=== PATIENT | female | born 1965 | race African-American/Black ===

== ENCOUNTER 2019-12-08 08:11 | Outpatient (CLI) | payer OTHER, SELFPAY ==
--- NOTE | ~2019-12-08 | MM_ITS ---
EXAMINATION: MM screening maite BI w adrian HISTORY: Screening mammogram TECHNIQUE: Craniocaudal and mediolateral oblique 3-D tomosynthesis images were obtained and synthetic 2-D images were generated. CAD analysis was submitted and interpreted. COMPARISON: No prior mammogram is available for comparison at this institution. BREAST PARENCHYMAL COMPOSITION: There are scattered areas of fibroglandular density. FINDINGS: There is no evidence of suspicious mass, calcification, or architectural distortion to sugg est malignancy in either breast. There has been no suspicious interval change. IMPRESSION: 1. No mammographic evidence of malignancy. 2. Recommend routine screening mammography in one year. BI-RADS Category 1: Negative Reviewed, dictated and finalized at location A.
== END 2019-12-08 08:12 | disposition home or self-care (01) ==
LOC: ANHIMG 08:20
DX: Z12.31 Encounter for screening mammogram for malignant neoplasm of breast (principal)
CPT/HCPCS: 77063; 77067

== ENCOUNTER 2021-01-19 09:26 | Outpatient (CLI) | payer OTHER, SELFPAY ==
--- NOTE | ~2021-01-19 | MM_ITS ---
EXAMINATION: MM screening maite BI w adrian HISTORY: Screening mammogram TECHNIQUE: Craniocaudal and mediolateral oblique 3-D tomosynthesis images were obtained and synthetic 2-D images were generated. CAD analysis was submitted and interpreted. COMPARISON: 12/08/2019 BREAST PARENCHYMAL COMPOSITION: There are scattered areas of fibroglandular density. FINDINGS: There is no evidence of suspicious mass, calcification, or architectural distortion to sugg est malignancy in either breast. There has been no suspicious interval change. IMPRESSION: 1. No mammographic evidence of malignancy. 2. Recommend routine screening mammography in one year. BI-RADS Category 1: Negative Reviewed, dictated and finalized at location A.
== END 2021-01-19 09:27 | disposition home or self-care (01) ==
DX: Z12.31 Encounter for screening mammogram for malignant neoplasm of breast (principal)
CPT/HCPCS: 77063; 77067

== ENCOUNTER 2022-03-22 09:09 | Outpatient (CLI) | payer OTHER, SELFPAY ==
--- NOTE | ~2022-03-22 | MM_ITS ---
EXAMINATION: MM screening maite BI w adrian HISTORY: Screening TECHNIQUE: Craniocaudal and mediolateral oblique 3-D tomosynthesis images were obtained and synthetic 2-D images were generated. CAD analysis was submitted and interpreted. COMPARISON: Comparison to multiple prior studies sequentially, with oldest reviewed study dated 12/07. BREAST PARENCHYMAL COMPOSITION: There are scattered areas of fibroglandular density. FINDINGS: There is no evidence of suspicious mass, calcification, or architectural distortion to sugg est malignancy in either breast. There has been no suspicious interval change. IMPRESSION: 1. No mammographic evidence of malignancy. 2. Recommend routine screening mammography in one year. BI-RADS Category 1: Negative Reviewed, dictated and finalized at location A.
== END 2022-03-22 09:10 | disposition home or self-care (01) ==
DX: Z12.31 Encounter for screening mammogram for malignant neoplasm of breast (principal)
CPT/HCPCS: 77063; 77067

== ENCOUNTER 2023-05-28 14:29 | Outpatient (CLI) | payer OTHER, SELFPAY ==
--- NOTE | ~2023-05-28 | MM_ITS ---
EXAMINATION: MM screening maite BI w adrian HISTORY: Screening mammogram TECHNIQUE: Craniocaudal and mediolateral oblique 3-D tomosynthesis images were obtained and synthetic 2-D images were generated. CAD analysis was submitted and interpreted. COMPARISON: 03/22/2022, 01/19/2021, 12/08/2019 bilateral screening mammogram examinations BREAST PARENCHYMAL COMPOSITION: There are scattered areas of fibroglandular density. FINDINGS: There is no evidence of suspicious mass, calcification, or architectural distortion to sugg est malignancy in either breast. There has been no suspicious interval change. IMPRESSION: 1. No mammographic evidence of malignancy. 2. Recommend routine screening mammography in one year. BI-RADS Category 1: Negative Reviewed, dictated and finalized at location A.
== END 2023-05-28 14:30 | disposition home or self-care (01) ==
DX: Z12.31 Encounter for screening mammogram for malignant neoplasm of breast (principal)
CPT/HCPCS: 77063; 77067

== ENCOUNTER 2024-06-29 09:30 | Outpatient (CLI) | payer OTHER, SELFPAY ==
--- NOTE | ~2024-06-29 | MM_ITS ---
EXAMINATION: MM screening maite BI w adrian HISTORY: Screening TECHNIQUE: Craniocaudal and mediolateral oblique 3-D tomosynthesis images were obtained and synthetic 2-D images were generated. CAD analysis was submitted and interpreted. COMPARISON: Comparison to multiple prior studies sequentially, with oldest reviewed study dated 12/07. BREAST PARENCHYMAL COMPOSITION: Not dense: There are scattered areas of fibroglandular density. FINDINGS: There is no evidence of suspicious mass, calcification, or architectural distortion to sugg est malignancy in either breast. There has been no suspicious interval change. IMPRESSION: 1. No mammographic evidence of malignancy. 2. Recommend routine screening mammography in one year. BI-RADS Category 1: Negative Reviewed, dictated and finalized at location B.
== END 2024-06-29 09:31 | disposition home or self-care (01) ==
LOC: ANHIMG 09:32
DX: Z12.31 Encounter for screening mammogram for malignant neoplasm of breast (principal)
CPT/HCPCS: 77063; 77067

== ENCOUNTER 2025-07-23 14:58 | Outpatient (CLI) | payer OTHER, SELFPAY ==
--- NOTE | ~2025-07-23 | MM_ITS ---
EXAMINATION: MM screening [facility] BI w adrian HISTORY: Screening TECHNIQUE: Craniocaudal and mediolateral oblique 3-D tomosynthesis images were obtained and synthetic 2-D images were generated. CAD analysis was submitted and interpreted. COMPARISON: Comparison to multiple prior studies sequentially, with oldest reviewed study dated 12/08/2019. BREAST PARENCHYMAL COMPOSITION: Not dense: There are scattered areas of fibroglandular density. FINDINGS: There is no evidence of suspicious mass, calcification, or architectural distortion to suggest malignancy in either breast. There has been no suspicious interval change. IMPRESSION: 1. No mammographic evidence of malignancy. 2. Recommend routine screening mammography in one year. BI-RADS Category 1: Negative Reviewed, dictated and finalized at location B.
--- OUTSIDE RECORDS SUMMARY | 2025-07-23 15:05 | XMS_ITS | Encounter Summary ---
Author Organization [facility] Address [address] [place] [id number] Care Team Providers Care Security Systems Specialist Name Role Phone Mio Rojo MD Primary Care Provider [phone] Encounter Details Date Type Department Care Team (Late st Contact Info) Description 02/09/1999 Outpatient Historical [facility] Family Medicine - [place] [address] [place] [address] Estela Nettles Social History Tobacco Use Types Packs/Day Years Used Date Smoking Tobacco: Never Assessed Comments Unknown Sex and Gender Information Value Date Recorded Sex Assigned at Not on file Legal Sex Female 4:00 AM TOOL AND DIE MAKER Gender Identity Not on file Sexual Orientation Not on file documented as of this encounter Plan of Treatment Upcoming Encounters Date Type Department Care Team (Late st Contact Info) Description 08/13/2025 9:20 AM TOOL AND DIE MAKER Office Visit [facility] Internal Medicine - [address] [address] Ale Kim MD [address] [place] [address] documented as of this encounter Visit Diagnoses Not on filedocumented in this encounter Care Teams Security Systems Specialist Relationship Specialty Start Date End Date Mio Rojo MD [address] [facility] [address] [place] [address] PCP - General Family Practice 09/01/24 documented as of this encounter
--- OUTSIDE RECORDS SUMMARY | 2025-07-23 15:05 | XMS_ITS | Encounter Summary ---
Author Organization [facility] Address [address] [place] [address] Care Team Providers Care Aircraft Structural Design Engineer Name Role Phone Mio Rojo MD Primary Care Provider [phone] Encounter Details Date Type Department Care Team (Latest Contact Info) Description 07/29/2006 Outpatient Historical [facility] EVE Liriano Jr., Leroy Le MD NO ADDRESS ON FILE Senile Osteoporosis (Primary Dx) Social History Tobacco Use Types Packs/Day Years Used Date Smoking Tobacco: Never Assessed Comments Unknown Sex and Gender Information Value Date Recorded Sex Assigned at Not on file Legal Sex Female 4:00 AM INTERNAL REVENUE SERVICE AGENT Gender Identity Not on file Sexual Orientation Not on file documented as of this encounter Plan of Treatment Upcoming Encounters Date Type Department Care Team (Late st Contact Info) Description 08/13/2025 9:20 AM INTERNAL REVENUE SERVICE AGENT Office Visit [facility] Internal Medicine - [facility] [address] [place] [id number] Ale Kim MD [address] [place] [phone] documented as of this encounter Procedures Procedure Name Priority Date/Time Associated Diagnosis Comments VITAMIN D 25 HYDROXY Routine 07/29/2006 12:10 PM INTERNAL REVENUE SERVICE AGENT T3 FREE Routine 07/29/2006 12:10 PM INTERNAL REVENUE SERVICE AGENT TSH Routine 07/29/2006 12:10 PM INTERNAL REVENUE SERVICE AGENT T4 FREE Routine 07/29/2006 12:10 PM INTERNAL REVENUE SERVICE AGENT PTH INTACT Routine 07/29/2006 12:10 PM INTERNAL REVENUE SERVICE AGENT CALCIUM IONIZED Routine 07/29/2006 12:10 PM INTERNAL REVENUE SERVICE AGENT documented in this encounter Results * VITAMIN D 25 HYDROXY (07/29/2006 12:10 PM INTERNAL REVENUE SERVICE AGENT) VITAMIN D, 25 OH, TOTAL 35 20 - 100 ng/mL INTERFACE SYSTEM VITAMIN D, 25 OH, D3 35 ng/mL INTERFACE SYSTEM VITAMIN D, 25 OH, D2 <4 ng/mL INTERFACE SYSTEM Comment: Vitamin D, 25-OH, D3: Endogenous form of Vitamin D present in the body. Vitamin D, 25-OH, D2: Used for therapeutic purposes in Vitamin D deficient states. This test was performed using the LC/MS/MS methodology. 25-OHD3 indicates both endogenous production and supplementation. 25-OHD2 is an indicator of exogenous sources such as diet or supplementation. Therapy is based on measurement of Total 25-OHD, with levels <20 ng/mL suggesting Vitamin D deficiency while levels between 20 ng/mL and 30 ng/mL suggesting insufficiency. In both situations there is need for intense to moderate supplementation. In patients using D2 (ergocalciferol) supplementation, levels of 4 ng/mL of 25-OHD2 or greater suggest compliance. Lab test performed by: [employer] [facility] [id number] [place], [place] JERRICA MONSON MD 07/29/2006 12:1 0 PM INTERNAL REVENUE SERVICE AGENT us Leroy Liriano Jr., MD CHEMISTRY ORDERABLES Final Result INTERFACE SYSTEM Refer to clinic/hospital department * (ABNORMAL) CALCIUM IONIZED (07/29/2006 12:10 PM INTERNAL REVENUE SERVICE AGENT) CALCIUM IONIZED 5.24(H) 4.76 - 5.16 mg/dL INTERFACE SYSTEM 07/29/2006 12:1 0 PM INTERNAL REVENUE SERVICE AGENT us Leroy Liriano Jr., MD CHEMISTRY ORDERABLES Final Result Performing Organization Address City/[facility] Co de Phone Number INTERFACE SYSTEM Refer to clinic/hospital department * PTH INTACT (07/29/2006 12:10 PM INTERNAL REVENUE SERVICE AGENT) CALCIUM 9.9 8.4 - 10.2 mg/dL INTERFACE SYSTEM PTH INTACT 18 15 - 65 pg/mL INTERFACE SYSTEM 07/29/2006 12:1 0 PM INTERNAL REVENUE SERVICE AGENT us Leroy Liriano Jr., MD CHEMISTRY ORDERABLES Final Result Performing Organization Address [facility] de Phone Number INTERFACE SYSTEM Refer to clinic/hospital department * T3 FREE (07/29/2006 12:10 PM INTERNAL REVENUE SERVICE AGENT) T3 FREE 2.8 2.5 - 4.4 pg/mL INTERFACE SYSTEM 07/29/2006 12:1 0 PM INTERNAL REVENUE SERVICE AGENT Leroy Liriano Jr., MD CHEMISTRY ORDERABLES Final Result Performing Organization Address [facility] de Phone Number INTERFACE SYSTEM Refer to clinic/hospital department * T4 FREE (07/29/2006 12:10 PM INTERNAL REVENUE SERVICE AGENT) T4 FREE 1.0 0.9 - 1.7 ng/dL INTERFACE SYSTEM 07/29/2006 12:1 0 PM INTERNAL REVENUE SERVICE AGENT us Leroy Liriano Jr., MD CHEMISTRY ORDERABLES Final Result Performing Organization Address [facility] Co de Phone Number INTERFACE SYSTEM Refer to clinic/hospital department * TSH (07/29/2006 12:10 PM INTERNAL REVENUE SERVICE AGENT) TSH 2.81 0.27 - 4.20 uU/mL INTERFACE SYSTEM 07/29/2006 12:1 0 PM INTERNAL REVENUE SERVICE AGENT us Leroy Liriano Jr., MD CHEMISTRY ORDERABLES Final Result Performing Organization Address City/[facility]/ZIP Co de Phone Number INTERFACE SYSTEM Refer to clinic/hospital department documented in this encounter Visit Diagnoses Diagnosis Senile osteoporosis- Primary documented in this encounter Care Teams Aircraft Structural Design Engineer Relationship Specialty Start Date End Date Mio Rojo MD [address] [place] [address] PCP - General Family Practice 09/01/24 documented as of this encounter
--- OUTSIDE RECORDS SUMMARY | 2025-07-23 15:05 | XMS_ITS | Clinical Summary ---
Author Organization [facility] Address [address] [address] Care Team Providers Care Ice Resurfacing Machine Operators Name Role Phone Mio Rojo MD Primary Care Provider [phone] Allergies Active Allergy Reactions Criticality Noted Date Comments Penicillins Medications tretinoin (RETIN-A) 0.1 % cream APPLY CREAM TOPICALLY ONCE DAILY AT BEDTIME TO FACE 0 Active omega-3/dha/epa /fish oil (OMEGA-3 ORAL) Take by mouth A ctive spironolactone (ALDACTONE) 50 mg tablet Take 150mg daily 1 Active hydroquinone 4 % cream as needed 1 Active hydrocortisone 2.5 % ointment RUB IN WELL TWICE A DAY TO INVOLVED AREAS UNTIL 1 Active valACYclovir (VALTREX) 1 gram tablet TAKE 2 TABLETS BY MOUTH TWICE DAILY FOR ONE DAY AT ONSET. REPEAT DOSE NEEDED AT ONSET OF SYMPTOMS THROUGH THE MONTHS 2 Active azelastine (ASTELIN) 137 mcg (0.1 %) nasal spray USE 1 SPRAY(S) IN EACH NOSTRIL TWICE DAILY DIRECTED 30 mL 1 3 Active ashwagandha extract 120 mg capsule Take by mouth Active magnesium oxide 400 mg magnesium capsule Take by mouth Active apple cider vinegar 300 mg tablet Take by mouth Active acidophilus-pec tin, citrus 100 million cell-10 mg capsule Take by mouth Activ e glucosamine HCl/chondroitin tse (glucosamine-ch ondroitin) 2,000-1,200 mg/30 mL liquid Take by mouth Active cinnamon bark 500 mg capsule Take 1 capsule (500 mg total) by mouth daily Active RED BEET ROOT-SOUR SILVERMAN EXT ORAL Take 1,200 mg by mouth Active vitamin B complex capsule Take 1 capsule by mouth daily Active turmeric root extract 500 mg capsule Take 2 capsules by mouth daily Active ginseng 100 mg capsule Take by mouth Active vitamin D3-folic acid 125 mcg (5,000 unit)-1 mg tablet Take by mouth daily Active vitamin K2 40 mcg tablet Take by mouth Activ e glutamine 500 mg capsule Take 2 capsules by mouth daily Active multivitamin tabletIndicatio ns:Vitamin Deficiency Prevention Take 1 tablet by mouth Active safflower oil-linoleic acid,co (CLA) 1,000 mg capsule Take 2 capsules by mouth daily Active ascorbic acid (vitamin C) 1,000 mg tablet Take 1 tablet (1,000 mg total) by mouth daily Active pomegranate fruit extract 250 mg capsule Take 1 capsule by mouth daily Active cranberry 500 mg capsule Take by mouth Activ e selenium 200 mcg capsule Take by mouth Acti ve vit C,T-Ew-icqsk-arnol tein-zeaxan 250-90-40-1 mg capsule Take by mouth Active ascorbic acid/collagen hydr (COLLAGEN PLUS VITAMIN C ORAL) Take by mouth Active ciclopirox (PENLAC) 8 % solution Apply topically nightly Apply over nail and surrounding skin. Apply daily over previous coat. After seven (7) days, may remove with alcohol and continue cycle. Active famotidine (PEPCID) 20 mg tablet Take 1 tablet (20 mg total) by mouth nightly as needed 4 Active Jublia 10 % solution with applicator APPLY TOPICALLY TO AFFECTED NAILS ONCE DAILY 4 Active Tyrvaya 0.03 mg/spray spray, metered, non-aerosol USE IN EACH NOSTRIL TWICE DAILY DIRECTED 4 Active minocycline (MINOCIN,DYNACI N) 50 mg capsule 4 Active Active Problems Problem Noted Date Diagnosed Date Stage 3b chronic kidney disease 05/16/2023 Assessment & Plan (05/16/2023 10:12 AM CDT): Monitor renal function. Also check PTH and vitamin-D level. Toenail fungus 05/16/2023 Assessment & Plan (05/16/2023 10:12 AM CDT): Currently on terbinafine and also uses ciclopirox. Given CKD, monitor renal function. Acne vulgaris 05/16/2023 Assessment & Plan (05/16/2023 10:13 AM CDT): Currently there is no active lesion. Spironolactone only as needed Pure hypercholesterolemia 05/16/2023 Assessment & Plan (05/16/2023 10:14 AM CDT): Total cholesterol is mildly elevated. Prior LDL was 122. Repeat labs. Continue regular exercise and start low-fat low carb diet Seasonal allergic rhinitis 05/15/2022 Assessment & Plan (05/15/2022 9:38 PM CDT): Boggy and inflammed turbinates with minimal clear drainage left >rt. Start Azelastine nasal spray. Encounter for preventative adult health care exa mination 05/23/2021 Overview (05/15/2022): Pt states Pap test today with track worker,Dr Allie Boss at [facility] Colonoscopy: 09/2015: Dr lala ken, normal, recall in 10 yrs Assessment & Plan (05/16/2023 10:14 AM CDT): Mammogram: Recommend annual mammogram. Mammogram-03/22/22- negative Colonoscopy 09/26/[address] Ken - Normal, recall in 10 yrs. Cervical cancer screening: We recommend cervical cancer screening for all individuals with a cervix ages aged 21 to 65 years. She states that she had PAP today with Dr Boss, await results. Recommend Tdap every 10 yrs, annual flu vaccine, and COVID 19 booster vaccination. Recommend Colon cancer screening : Due in 2025 She reports having Pap test with Dr. Allie Boss, Pap test however unavailable she wants to establish care with a new track worker. Referral given to patient. Mammogram 03/22/2022 was negative. Recommend annual mammogram Continue regular dental visit 1-2 times a year and annual eye exam. Continue regular exercise and healthy diet Assessment & Plan (05/15/2022 9:38 PM CDT): Mammogram: Recommend annual mammogram. Mammogram-03/22/22- negative Colonoscopy 09/26/[address] Ken - Normal, recall in 10 yrs. Cervical cancer screening: We recommend cervical cancer screening for all individuals with a cervix ages aged 21 to 65 years. She states that she had PAP today with Dr Boss, await results. Recommend Tdap every 10 yrs, annual flu vaccine, shingles vaccine and COVID 19 vaccination primary series and booster vaccination. Recommend Colon cancer screening : Due in 2025 Recommend regular dental visit 1-2 times a year or as recommended by your dentist. Also recommend annual eye exam. Nutrition: Recommend eating a balanced diet, including fruits and vegetables daily and regular servings of fish. Limit alcohol to one drink per day for female and no more than 2 drink a day for Lmales, where a drink is defined as 12 oz of beer, 5 oz of wine, or 1.5 oz of spirits. Activity: Normal BMI is >=18.5 to 24.9 kg/m2. .Try to keep BMI at the recommended limit. Recommend 30 minutes of exercise at least 5 days a week or 150 minutes of weekly exercise. Smoking: Smoking tobacco products is the most important risk factor for the development of lung cancer and contributes to a large burden of disease, including other malignancies, cardiovascular disease and pulmonary disease. If you smoke cigarettes, please stop smoking, you can also call 7-7[employer] to help you quit smoking. Avoid illegal drugs and prescription medications that are not used for medical purposes Sleep: Sleep can have a big effect on your memory and thinking. Please make sure you get a good night's sleep every night. Assessment & Plan (05/23/2021 10:56 PM CDT): Recommend regular exercise, 30 minutes of daily at least 5 days a week, eat fresh fruits and vegetables, avoid processed food. Recommend shingles vaccine if you have not had it previously, tetanus vaccine every 10 years, flu vaccine every year and two dose of pneumococcal vaccine a year apart after you turn 65. A normal BMI is between 18.5-24.9 kg/m2. Recommend annual mammogram and Pap test every 3-5 years. Colonoscopy due in 2025. Patient here for annual Medicare wellness visit and for review of complete medical problem list. All the elements of the plan were completed as outlined by CMS. A copy of the prevention plan was given to the patient. I reviewed Medicare Wellness Questionnaire (other physicians involved in care, depression screen, advanced directives), cognitive/memory, and functional assessment. Forms scanned in progress notes. I reviewed and updated the complete problem list, medication list, family history, and immunization records with the patient. I provided preventive counseling and early detection interventions to the patient through health maintenance update and summary of today's office visit. Please see patient instructions section for recommendations for appropriate screening and monitoring guidelines. Arthritis of finger of right hand 03/24/2020 Assessment & Plan (03/24/2020 11:55 AM CDT): Check x-ray, continue meloxicam. Arthritis of finger of left hand 03/24/2020 Assessment & Plan (03/24/2020 11:56 AM CDT): Check x-ray, continue meloxicam Pain in both lower extremities 03/24/2020 Assessment & Plan (03/24/2020 11:57 AM CDT): Bilateral knee exam appears normal. Continue meloxicam Urge incontinence 10/24/2018 Assessment & Plan (10/30/2019 1:27 PM GAS CHARGER): Mild, no intervention necessary conservative measures only Assessment & Plan (10/24/2018 11:04 AM GAS CHARGER): Little change in symptoms observe only Osteoarthritis 09/12/2018 Assessment & Plan (05/16/2023 10:10 AM CDT): Generalized osteoarthritis, okay to continue empiric and glucosamine. Assessment & Plan (05/23/2021 10:57 PM CDT): She has multiple joint arthritis. We discussed about meloxicam and is side effect including but not limited to acute kidney injury, bleeding, upset stomach, elevated blood pressure. Advised patient to use it only as needed. Recommended taking Tylenol. Assessment & Plan (10/30/2019 1:27 PM GAS CHARGER): Cautious trial of meloxicam in place of episodic Advil. Can also try glucosamine/chondroitin sulfate in place of regular glucosamine which is less effective. Can continue to work. Believe all of left leg pain is basically from arthritis in knee. No signs of sciatica her other disorder Assessment & Plan (10/24/2018 11:04 AM GAS CHARGER): Reviewed stretching exercises, regular exercises with low impact, and her supplements. Continue her glucosamine chondroitin sulfate analogs, tumor. Advised f fish oil has marginal evidence for osteoarthritis. She is on a variety of other supplements that I can neither damn nor endorse, and have advised her she should try stopping and starting them over a couple of months to see if they really provide any benefit rather than simply taking multiple pills wholesale Assessment & Plan (09/12/2018 10:04 AM GAS CHARGER): Generalized but more in the hand and back. Recommend chondroitin sulphate. Advil short term during flares. Can continue apple cider vinegar if it has been helpful. Will recommend physical therapy. Foot insert in the left to adjust for pelvic tilt Allergy 09/12/2018 Assessment & Plan (10/30/2019 1:25 PM GAS CHARGER): OTC medicine only seems stable Assessment & Plan (09/12/2018 10:31 AM GAS CHARGER): Possible allergic symptoms causing sneezing after meals. Recommended OTC intranasal Flonase, avoid Claritin / zyrtec as much as possible as it can cause dryness. BMI 28.0-28.9,adult 08/22/2017 Assessment & Plan (10/30/2019 11:38 AM GAS CHARGER): BMI Follow-up includes: nutrition counseling and exercise counseling. Assessment & Plan (10/21/2017 2:43 PM GAS CHARGER): BMI Follow-up includes: nutrition counseling and exercise counseling. Assessment & Plan (08/22/2017 12:42 PM GAS CHARGER): BMI is elevated, Today's instructions and counseling include lifestyle education regarding diet and exercise as well as weight loss. Dysthymia 08/22/2017 Assessment & Plan (10/30/2019 1:25 PM GAS CHARGER): Little change, does not meet criteria for depression with only mild disturbed sleep but little problems with interest rumination energy concentration psychomotor retardation appetite and certain no suicidal thoughts Assessment & Plan (10/21/2017 2:42 PM GAS CHARGER): Does not meet criteria for depression. Predominantly situational with some anxiety features. Discussed using melatonin for sleep. If anxiety flares could use brief intermittent course of benzodiazepine. She is already starting to make appropriate plans for lifestyle and job changes which should make matters better. Her mild memory loss appears related to her situational anxiety and dysthymmia, call if worsens Call if any symptoms worsen Assessment & Plan (08/22/2017 12:48 PM GAS CHARGER): She believes it is her Lack of Energy due to work load will start Lexapro and F/U in 6w Vitamin D deficiency 08/08/2016 Overview (01/03/2017): Vitamin D deficiency Assessment & Plan (10/30/2019 1:26 PM GAS CHARGER): Past history, urged to resume supplement Assessment & Plan (10/21/2017 2:42 PM GAS CHARGER): Last vitamin D level good no changes made. Reviewed her supplements, cannot endorse or damn them. Made aware that rashes and stomach upset could occurred she should re-evaluate if these issues occur Resolved Problems Problem Noted Date Diagnosed Date Resolved Date Class 1 obesity due to exces s calories without serious comorbidity with body mass index (BMI) of 30.0 to 30.9 in adult 05/16/2023 Assessment & Plan (05/16/2023 10:14 AM CDT): See above Globus sensation 12/05/2022 08/11/2024 Ganglion cyst of wrist, left 10/30/2019 08/11/2024 Assessment & Plan (10/30/2019 11:39 AM GAS CHARGER): Refer to Dr. Villalta, discussed relatively benign nature Health maintenance examination 10/24/2018 05/16/2023 Assessment & Plan (10/30/2019 1:25 PM GAS CHARGER): Life style, exerise and diet were reviewed with the patient, along with ideal body weight. Use of caffeine and alcohol were discussed. Medications, compliance and pertinent adverse drug effects were reviewed. Health maintenance matters were discussed and are now up to date. Assessment & Plan (10/24/2018 8:51 AM GAS CHARGER): Life style, exerise and diet were reviewed with the patient, along with ideal body weight. Use of caffeine and alcohol were discussed. Medications, compliance and pertinent adverse drug effects were reviewed. Health maintenance matters were discussed and are now up to date. Memory impairment of gradual onset 09/12/2018 10/30/2019 Assessment & Plan (09/12/2018 10:32 AM GAS CHARGER): Concerns of memory impairment. SLUMS normal. Will continue to follow Hx of left flank pain 10/21/20172017 Flank pain 10/21/2017 10/30/2019 Assessment & Plan (10/21/2017 2:41 PM GAS CHARGER): Given history of kidney stone in current flank pain will check CT KUB. Much of her symptoms seem musculoskeletal and there is some slight hip height in quality. If CT negative will have see therapy for evaluation Pain in wrist 12/11/2016 08/11/2024 Pain of hand 07/28/2013 08/11/2024 Assessment & Plan (09/12/2018 10:05 AM GAS CHARGER): Decrease over use of the joint. Stretching, working with PT. Can continue to use advil as needed Immunizations Immunization Administration Dates Next Due Influenza, Quadrivalent, Spl it, Preservative Free, Intradermal 08/08/2016 Influenza, Quadrivalent, Spl it, Preservative Free, Intramuscular 08/22/2017 Influenza, Unspecified 05/19/2024(Deferr ed: Patient Refused),09/12/2018(Deferred: Patient Refused) Pfizer SARS-CoV-2 Monovalent Vaccination (12+ Yrs) PURPLE 08/11/2021,11/25/2020,11/06/2020 Tdap 05/23/2021 ZOSTER Recombinant 04/18/2020,12/08/2019 Surgical History Surgery Date Site/Laterality Comments OTHER SURGICAL HISTORY kidney stone: lithotripsy LASIK SECTION Medical History Medical History Date Comments Hx Other Medical kidney stone Kidney stone Arthritis Autoimmune disease Sinusitis Anxiety Osteoporosis Family History Medical History Relation Name Comments Arthritis Father Coronary artery disease Father Devora nary artery disease; Hypertension Father Arthritis Mother Diabetes Mother Diabetes mellit us; Heart disease Mother Kidney disease Mother Relation Name Status Comments Father Mother Social History Tobacco Use Types Packs/Day Years Used Date Smoking Tobacco: Never Smokeless Tobacco: Never Tobacco Cessation:Counseling Given: Not Answered Comments:[place] couple during the week. Alcohol Use Standard Drinks/Week Comments Yes 0 (1 standard drink = 0.6 oz pur e alcohol) AUDIT-C Answer Date Recorded Q1: How often do you have a drink containing alc ohol? Monthly or less 07/30/2023 Q2: How many drinks containi ng alcohol do you have on a typical day when you are drinking? 1 or 2 07/30/2023 Q3: How often do you have si x or more drinks on one occasion? 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 Not on file Not on file Not on file Obstetrics History Para Term AB IAB SAB Ectopic Multiple Livin g Live Births 1 1 1 Date Outcome GA Total Labor Labor/2nd/3rd Weight Sex Type Anes PTL Shelley A1 A5 Name Clin 2000 F CS-Un spec Demise Last Filed Vital Signs Vital Sign Reading Time Taken Comments Blood Pressure 148/90 08/11/2024 1:06 PM GAS CHARGER Pulse 62 08/11/2024 12:38 PM GAS CHARGER Temperature 36.8 C (98.2 F) 08/22/2017 12:35 PM GAS CHARGER Respiratory Rate 18 12/05/2022 10:54 AM CDT Oxygen Saturation 99% 08/11/2024 12:38 PM GAS CHARGER Inhaled Oxygen Concentration - - Weight 70.3 kg (155 lb) 08/11/2024 12:38 PM GAS CHARGER Height 157.5 cm (5' 2) 08/11/2024 12:38 PM GAS CHARGER Body Mass Index 28.35 08/11/2024 12:38 PM GAS CHARGER Plan of Treatment Health Maintenance Due Date Last Done Comments Cervical Cancer Screening 1965 Covid-19 Vaccine ( season) 2025 08/11/2021, 11/25/2020, 11/06/2020 Breast Cancer Screening-Mammogram 06/29/2025 06/29/2024, 05/28/2023, 03/22/2022, Additional history exists Depression Screening 08/11/2025 08/11/2024, 05/16/2023, 05/15/2022, Additional history exists Regular Well Visit/Exam 18-64 08/11/2025 08/11/2024, 05/16/2023, 05/15/2022, Additional history exists Colon Cancer Screening-Colonoscopy 09/26/2025 09/26/2015 DTaP/Tdap/Td Vaccine (2 - Td or Tdap) 05/23/2031 05/23/2021 Colon Cancer Screening-CT Colonography Discontinued 09/26/2015 Colon Cancer Screening-DNA Stool Discontinued 09/26/2015 Colon Cancer Screening-FIT Discontinued 09/26/2015 Colon Cancer Screening-Sigmoidoscopy Discontinued 09/26/2015 Hepatitis C Screening Completed 08/22/2017 Influenza Vaccine Discontinued 08/22/2017, 08/08/2016 Zoster Vaccine Completed 04/18/2020, 12/08/2019 Hepatitis B Screening Discontinued Pneumococcal vaccine <65 Aged Out No longer eligible based on patient's age to complete this topic Procedures Procedure Name Priority Date/Time Associated Diagnosis Comments MAMMOGRAPHY, TOMOGRAPHY, BILATERAL Schedule Routine, Read Routine (OP Routine) 06/29/2024 10:21 AM CDT HEPATITIS C ANTIBODY Routine 08/22/2017 1:16 PM GAS CHARGER Encounter for preventive health examination COLONOSCOPY Routine 09/26/2015 from Last 3 Months or Most Recently Relevant to Health Maintenance Results * MAMMOGRAPHY, TOMOGRAPHY, BILATERAL (06/29/2024 10:21 AM CDT) Anatomical Region Laterality Modality Breast Bilateral Mammography Historical Provider IMG MAMMO PROCEDURES Cathryn l Result * Hepatitis C antibody (08/22/2017 1:16 PM GAS CHARGER) Hep C Ab Non-Reactiv e Non-Reactiv e [facility] Blood specimen (specimen) 08/22/2017 1:16 PM GAS CHARGER 08/22/2017 8:30 PM GAS CHARGER [facility]ative [facility] - 08/22/2017 10:12 PM GAS CHARGER Maury Rocha MD LAB MICROBIOLOGY - GENERAL ORD ERABLES Final Result Performing Organization Address City/State/[facility] Co de Phone Number [facility] [address] [place] [address] * Colonoscopy (09/26/2015) Anatomical Region Laterality Modality Other Historical Provider ENDOSCOPY PROCEDURES Cathryn l Result from Last 3 Months or Most Recently Relevant to Health [place] [address] [address] [address] [facility] [id number] [place] [id number] [place] [id number] Member Subscriber Plan / Payer (Ef fective 2021-Present) Name:Gela Swain Member ID:[id number] Relation to Subscriber:Self Name:Gela Swain Subscriber ID:[id number] Payer ID:[id number] Type:[employer] HMO/PPO Address: [employer] CLAIMS [address] [place] [id number] Care Teams Ice Resurfacing Machine Operators Relationship Specialty Start Date End Date Mio Rojo MD [address] [facility] [address] [address] PCP - General Family Medicine 03/24/20
--- OUTSIDE RECORDS SUMMARY | 2025-07-23 15:05 | XMS_ITS | Encounter Summary ---
Author Organization [facility] Address [address] [place] [phone] Care Team Providers Care Welder Apprentice Arc Name Role Phone Mio Rojo MD Primary Care Provider [phone] Encounter Details Date Type Department Care Team (Late Contact Info) Description 05/13/2000 Outpatient Historical [facility] Family Medicine - [facility] [address] [place] [address] [address] [place] [address] Karl Carvajal MD [address] [place] [address] [address] [place] [address] Social History Tobacco Use Types Packs/Day Years Used Date Smoking Tobacco: Never Assessed Comments Unknown Sex and Gender Information Value Date Recorded Sex Assigned at Not on file Legal Sex Female 4:00 AM DRIER ATTENDANT Gender Identity Not on file Sexual Orientation Not on file documented as of this encounter Plan of Treatment Upcoming Encounters Date Type Department Care Team (Late st Contact Info) Description 08/13/2025 9:20 AM DRIER ATTENDANT Office Visit [facility] Internal Medicine - [address] [address] Ale Kim MD [address] [place] [address] documented as of this encounter Visit Diagnoses Not on filedocumented in this encounter Care Teams Welder Apprentice Arc Relationship Specialty Start Date End Date Mio Rojo MD [address] [place] [address] PCP - General Family Practice 09/01/24 documented as of this encounter
--- OUTSIDE RECORDS SUMMARY | 2025-07-23 15:05 | XMS_ITS | Encounter Summary ---
Author Organization [facility] Address [address] [place] [phone] Care Team Providers Care Health Data Administrator Name Role Phone Mio Rojo MD Primary Care Provider [phone] Encounter Details Date Type Department Care Team (Late Contact Info) Description 04/08/2000 Outpatient Historical [facility] Family Medicine - [facility] [address] [place] [address] [address] [place] [address] Karl Carvajal MD [address] [place] [address] [address] [place] [address] Social History Tobacco Use Types Packs/Day Years Used Date Smoking Tobacco: Never Assessed Comments Unknown Sex and Gender Information Value Date Recorded Sex Assigned at Not on file Legal Sex Female 4:00 AM BUSINESS DEVELOPMENT EXECUTIVE Gender Identity Not on file Sexual Orientation Not on file documented as of this encounter Plan of Treatment Upcoming Encounters Date Type Department Care Team (Late st Contact Info) Description 08/13/2025 9:20 AM BUSINESS DEVELOPMENT EXECUTIVE Office Visit [facility] Internal Medicine - [facility] [address] [place] [address] Ale Kim MD [address] [place] [address] documented as of this encounter Visit Diagnoses Not on filedocumented in this encounter Care Teams Health Data Administrator Relationship Specialty Start Date End Date Mio Rojo MD [address] [place] [address] PCP - General Family Practice 09/01/24 documented as of this encounter
--- OUTSIDE RECORDS SUMMARY | 2025-07-23 15:05 | XMS_ITS | Encounter Summary ---
Author Organization [facility] Address [address] [place] [address] Care Team Providers Care Mold Mover Name Role Phone Mio Rojo MD Primary Care Provider [phone] Encounter Details Date Type Department Care Team (Late Contact Info) Description 06/26/1999 Outpatient Historical [facility] Family Medicine - [facility] [address] [place] [address] [address] [place] [address] Karl Carvajal MD [address] [place] [address] [address] [place] [address] Social History Tobacco Use Types Packs/Day Years Used Date Smoking Tobacco: Never Assessed Comments Unknown Sex and Gender Information Value Date Recorded Sex Assigned at Not on file Legal Sex Female 4:00 AM PRODUCT SUPPORT ENGINEER Gender Identity Not on file Sexual Orientation Not on file documented as of this encounter Plan of Treatment Upcoming Encounters Date Type Department Care Team (Late st Contact Info) Description 08/13/2025 9:20 AM PRODUCT SUPPORT ENGINEER Office Visit [facility] Internal Medicine - [facility] [address] [place] [address] Ale Kim MD [address] [place] [address] documented as of this encounter Visit Diagnoses Not on filedocumented in this encounter Care Teams Mold Mover Relationship Specialty Start Date End Date Mio Rojo MD [address] [place] [address] PCP - General Family Practice 09/01/24 documented as of this encounter
--- OUTSIDE RECORDS SUMMARY | 2025-07-23 15:05 | XMS_ITS | Patient Health Record ---
Author Organization 1 OF [facility] Address [address] [facility] [address] [place] [address] Care Team Providers Care Compressed Gases Tester Name Role Phone Elvis Pulido M.D. Primary Care Provider Un available Dion Ibrahim Unavailable [phone] Reason For Referral No Information Medications Medication SIG (Take, Route, Frequency, Duration) Notes Start Date End Date Status Niacin Active Multivitamin Active Biotin Active Magnesium Active B Complex Active Move Free Joint Health Advance Active [place] 3 Active Progesterone Micronized Active Clotrimazole 1 % Solution 1 application to affected area externally Twice a day for 14 days 03/31/2019 Active Social History Tobacco Use: Social History Observation Description Date Details (start date - stop date) Never Smoker NA - NA Social History Tobacco Use: Social Info Question Answer Notes Tobacco Use/Smoking Are you a nonsmoker Additional Details Category Social Info Options Details Miscellaneous: Occupation: Retired Living with: spouse Drugs/Alcohol: Do you smoke marijuana? De nies Alcohol use: Social alcohol u se Recreational drugs Patient denie s recreational drug use Problems Problem Type SNOMED Code ICD Code Onset Dates Problem Status W/U Status Risk Notes Problem Plantarflexion deformity of right foot (finding) (1110426329646425) Equinus contracture of right ankle (M24.571) Active confirmed Problem Equinus contracture of left ankle (M24.572) Active confirmed Plan Of Treatment No Information Insurance Providers Payer Name Payer Address Payer Phone Subscriber Number Group Number Insured Name Patient Relationship to Insured Coverage Start Date Coverage End Date [employer] [address] [place], [place] [id number] Gela Concepcion Self - patient is the insured Medical (General) History Medical History History ICD Code Arthritis Surgical History Surgery Date(Month/Year) b/l ingrown removal
--- OUTSIDE RECORDS SUMMARY | 2025-07-23 15:05 | XMS_ITS | Clinical Summary ---
Author Organization [employer] [facility] anam Address [address] [place] [address] Care Team Providers Care Technical Service Rep Name Role Phone Mio Rojo MD Primary Care Provider Allergies No known active allergies Medications ashwagandha extract 120 mg Capsule Take by mouth. Activ e azelastine (ASTELIN) 137 mcg/actuation nasal spray USE 2 SPRAY(S) IN EACH NOSTRIL TWICE DAILY FOR 30 DAYS Active Cinnamon Bark 500 mg Capsule Take 500 mg by mouth daily. Active Cranberry 500 mg Capsule Take by mouth. Acti ve Jublia 10 % Solution With Applicator APPLY TOPICALLY TO AFFECTED NAILS ONCE DAILY 4 Active Ginseng 100 mg Capsule Take by mouth. Activ e glucosamine HCl/chondroitin tse (glucosamine-ch ondroitin) 2,000-1,200 mg/30 mL Liquid Take by mouth. Active Glutamine 500 mg Capsule Take 2 Capsules by mouth daily. Active Hydroquinone 4 % Cream APPLY CREAM TOPICALLY TO AFFECTED AREA TWICE DAILY 4 Active magnesium oxide 400 mg magnesium Capsule Take by mouth. Activ e Miebo, PF, 100 % Drops 4 Active selenium 200 mcg Capsule Take by mouth. Act viktoriya tretinoin (RETIN-A) 0.05 % Cream APPLY CREAM TOPICALLY TO AFFECTED AREA AT BEDTIME 4 Active turmeric root extract 500 mg Capsule Take 2 Capsules by mouth daily. Active valACYclovir (VALTREX) 1 gram tablet Take 1,000 mg by mouth daily. Active Tyrvaya 0.03 mg/spray spray, metered, non-aerosol USE IN EACH NOSTRIL TWICE DAILY DIRECTED Active VITAMIN B COMPLEX ORAL Take 1 Capsule by mouth daily. Active Bifidobacterium infantis (ALIGN ORAL) Take by mouth. Activ e DIETARY SUPPLEMENT ORAL Take by mouth. Detox prebiotic/prob iotic Active Active Problems No known active problems Encounters Date Type Department Care Team Description 07/20/2025 External Device Data STL ABSTRACTION Provider, Abstract 04/27/2025 External Device Data ST[facility] ABSTRACTION Provider, Abstract from Last 3 Months Family History Relation Name Status Comments Father Mother Social History Tobacco Use Types Packs/Day Years Used Date Smoking Tobacco: Never Smokeless Tobacco: Never Tobacco Cessation:Counseling Given: Not Answered Alcohol Use Standard Drinks/Week Comments Yes 0 (1 standard drink = 0.6 oz pur e alcohol) social Comments Unknown Sex and Gender Information Value Date Recorded Sex Assigned at Not on file Legal Sex Female 4:00 AM STAGE SET DESIGNER Gender Identity Not on file Sexual Orientation Not on file Last Filed Vital Signs Vital Sign Reading Time Taken Comments Blood Pressure 128/87 09/01/2024 1:09 PM STAGE SET DESIGNER Pulse - - Temperature 36.6 C (97.9 F) 09/01/2024 1:09 PM STAGE SET DESIGNER Respiratory Rate 16 09/01/2024 1:09 PM STAGE SET DESIGNER Oxygen Saturation - - Inhaled Oxygen Concentration - - Weight 70.5 kg (155 lb 8 oz) 09/01/2024 1:09 PM STAGE SET DESIGNER Height 157.5 cm (5' 2) 09/01/2024 1:09 PM STAGE SET DESIGNER Body Mass Index 28.44 09/01/2024 1:09 PM STAGE SET DESIGNER Plan of Treatment Upcoming Encounters Date Type Department Care Team (Late st Contact Info) Description 08/13/2025 9:20 AM STAGE SET DESIGNER Office Visit [facility] Internal Medicine - [facility] [address] [place] [address] Ale Kim MD [address] [place] [address] Health Maintenance Due Date Last Done Comments Pre-Diabetes and Diabetes Screening 1963 HPV/Cotest (-) 1984 CERVICAL CANCER SCREENING 1993 HPV/Cotest (30-65) 1993 PAP SMEAR 1993 COLORECTAL SCREENING 2008 Colorectal Cancer Screening 2008 FIT-DNA Q 3 years 2008 FIT/FOBT Q 1 year 2008 Flex Sig/CT Colonography Q 5 years 2008 RSV VACCINE (60+ or ) (1 - Risk 50-74 years 1-dose series) 2013 BREAST CANCER SCREENING 09/29/2019 09/29/19 19, 12/31/2016, 09/26/2015, Additional history exists INFLUENZA VACCINE (#1) 2025 08/22/2017, 2015 COVID-19 Vaccine (4 - 2024-2 6 season) 2025 08/11/2021, 11/25/2020, 11/06/2020 DTAP/TDAP/TD VACCINES (2 - T d or Tdap) 05/23/2031 05/23/2021 ZOSTER VACCINE Completed 04/18/2020, 12/08/2019 Insurance [facility] (Home) [address] [id number] [facility] BEN[facility]IT PL[facility] Care Teams Technical Service Rep Relationship Specialty Start Date End Date Mio Rojo MD [address] [place] [address] PCP - General Family Practice 09/01/24
--- OUTSIDE RECORDS SUMMARY | 2025-07-23 15:05 | XMS_ITS | Encounter Summary ---
Author Organization [facility] Address [address] [place] [address] Care Team Providers Care Adoption Agent Name Role Phone Mio Rojo MD Primary Care Provider [phone] Encounter Details Date Type Department Care Team (Latest Contact Info) Description 11/22/2004 Outpatient Historical [facility] Liriano Jr., Leroy Le MD NO ADDRESS ON FILE MASTODYNIA (Primary Dx) Social History Tobacco Use Types Packs/Day Years Used Date Smoking Tobacco: Never Assessed Comments Unknown Sex and Gender Information Value Date Recorded Sex Assigned at Not on file Legal Sex Female 4:00 AM DIRECTOR VETERINARY Gender Identity Not on file Sexual Orientation Not on file documented as of this encounter Plan of Treatment Upcoming Encounters Date Type Department Care Team (Late st Contact Info) Description 08/13/2025 9:20 AM DIRECTOR VETERINARY Office Visit [facility] Internal Medicine - [facility] [address] [place] [address] Ale Kim MD [address] [place] [address] documented as of this encounter Visit Diagnoses Diagnosis Mastodynia- Primary documented in this encounter Care Teams Adoption Agent Relationship Specialty Start Date End Date Mio Rojo MD [address] [place] [id number] PCP - General Family Practice 12/10/24 documented as of this encounter
--- OUTSIDE RECORDS SUMMARY | 2025-07-23 15:05 | XMS_ITS | Encounter Summary ---
Author Organization [facility] Address [address] [place] [address] Care Team Providers Care Horse Shoer Name Role Phone Mio Rojo MD Primary Care Provider Encounter Details Date Type Department Care Team (Late Contact Info) Description 05/13/2001 Outpatient Historical [facility] Family Medicine - [facility] [address] [place] [address] [address] [place] [address] Karl Carvajal MD [address] [place] [address] [address] [place] [address] Social History Tobacco Use Types Packs/Day Years Used Date Smoking Tobacco: Never Assessed Comments Unknown Sex and Gender Information Value Date Recorded Sex Assigned at Not on file Legal Sex Female 4:00 AM APPLICATION INTEGRATION SPECIALIST Gender Identity Not on file Sexual Orientation Not on file documented as of this encounter Plan of Treatment Upcoming Encounters Date Type Department Care Team (Late st Contact Info) Description 08/13/2025 9:20 AM APPLICATION INTEGRATION SPECIALIST Office Visit [facility] Internal Medicine - [facility] [address] [place] [address] Ale Kim MD [address] [place] [address] documented as of this encounter Visit Diagnoses Not on filedocumented in this encounter Care Teams Horse Shoer Relationship Specialty Start Date End Date Mio Rojo MD [address] [place] [address] PCP - General Family Practice 09/01/24 documented as of this encounter
--- OUTSIDE RECORDS SUMMARY | 2025-07-23 15:06 | XMS_ITS | Clinical Summary ---
Author Organization [facility] Address [address] [place] [address] Care Team Providers Care Hot Plate Press Operator Name Role Phone New Referring, Provider Primary Care Provider Un available Social History Tobacco Use Types Packs/Day Years Used Date Smoking Tobacco: Never Assessed Comments Unknown Sex and Gender Information Value Date Recorded Sex Assigned at Not on file Legal Sex Female 9:47 AM MARRIAGE AND FAMILY SOCIAL WORKER Gender Identity Not on file Sexual Orientation Not on file Plan of Treatment Health Maintenance Due Date Last Done Comments Cervical Cancer Screening Pa p Smear (Age 30 to 64) Every 3 Years 1963 Colorectal Cancer Screening Colonoscopy (10 Years) 1963 Annual Physical 1966 Hepatitis C 1981 DTaP, Tdap and Td Vaccines ( 1 - Tdap) 1982 Cervical Cancer Screening Pa p with HPV Testing (Age 30 to 64) Every 5 Years 1993 Cervical Cancer Screening wi th HPV 1993 Mammogram Screening 2003 Pneumococcal Vaccine: 50+ Years (1 of 1 - PCV) 2013 Zoster Vaccines (1 of 2) 2013 COVID-19 Vaccine ( - 2024-2 6 season) 2025 Influenza Adult (#1) 2025 08/22/2017, 08/08/2016 RSV Immunization or 60+ Years (1 - 1-dose 75+ series) 2038 Hepatitis A Vaccines Aged Out No long er eligible based on patient's age to complete this topic Meningococcal B Vaccine Aged Out No l onger eligible based on patient's age to complete this topic Meningococcal Vaccine Aged Out No bonifacio sugar eligible based on patient's age to complete this topic RSV Immunizations Under 20 Months Aged Out No longer eligible b ased on patient's age to complete this topic Insurance [employer] [facility] Care Teams Hot Plate Press Operator Relationship Specialty Start Date End Date New Referring, Provider PCP - General UNKNOWN PHYSICIAN SPECIALTY 08/18/19
--- OUTSIDE RECORDS SUMMARY | 2025-07-23 15:06 | XMS_ITS | Patient Health Record ---
Author Organization [facility] Address [address] [place], [place] [address] Care Team Providers Care Flight Superintendent Name Role Phone COLETTE GEORGE Unavailable [phone] Mio Rojo Unavailable Unavailable Reason For Referral No Information Medications Medication SIG (Take, Route, Frequency, Duration) Notes Start Date End Date Status Ciclopirox 8 % Solution 1 application Externally Once a day 07/01/2023 Active terbinafine 250 MG Oral Tablet ORAL terbinafine 250 MG Oral TabletOriginal Medicationterbinafine 250 MG Oral Tablet *Reorder from [employer]pi[employer] for eRx and Interaction Alerts* 10/13/2020 Active Social History Social History Additional Details Category Social Info Options Details Migrated Social History Migrated Social History Smoking Status : Never used tobacco , History of tobacco use : Plan Of Treatment No Information Insurance Providers Payer Name Payer Address Payer Phone Subscriber Number Group Number Insured Name Patient Relationship to Insured Coverage Start Date Coverage End Date [employer] [address] [place], [place] [id number] PAWEL QUEEN Self - patient is the insured
--- OUTSIDE RECORDS SUMMARY | 2025-07-23 15:06 | XMS_ITS | Encounter Summary ---
Author Organization [facility] Address [address] [facility] [facility] [place] [address] Care Team Providers Care Cost And Risk Analysis Manager Name Role Phone Unavailable Primary Care Provider Unavailabl e Encounter Details Date Type Department Care Team (Late st Contact Info) Description 02/11/2024 Lab Requisition [facility] - DermPath Lab [address] [place] [phone] Sherwin Haley MD [address] [place] [address] Social History Tobacco Use Types Packs/Day Years Used Date Smoking Tobacco: Never Assessed Comments Unknown Sex and Gender Information Value Date Recorded Sex Assigned at Not on file Legal Sex Female 8:43 AM CDT Gender Identity Not on file Sexual Orientation Not on file documented as of this encounter Plan of Treatment Not on file documented as of this encounter Procedures Procedure Name Priority Date/Time Associated Diagnosis Comments DERMATOPATHOLOGY Routine 02/10/2024 12:0 0 AM CDT documented in this encounter Results * DERMATOPATHOLOGY (02/10/2024 12:00 AM CDT) Case Report Dermatopathology Report Case: [id number] Authorizing Provider: Sherwin Haley MD Collected: 02/10/2024 12:00 AM Ordering Location: [facility] - Received: 02/11/2024 09:21 AM DermPath Lab Pathologist: Shey Savage MD Specimens: A) - Skin, right thigh B) - Skin, left thigh 5:25 PM CDT DERMATOPATHOLOGY LABORATORY Final Diagnosis Specimen A. SKIN, right thigh: NEVUS LIPOMATOSUS SUPERFICIALIS (D17.30) Specimen B. SKIN, left thigh: ACROCHORDON (SOFT FIBROMA, SKIN TAG) (L91.8) 4 5:25 PM CDT DERMATOPATHOLOGY LABORATORY at 1725 CDT Clinical History A-B: r/o SEFP. 4 5:25 PM CDT DERMATOPATHOLOGY LABORATORY Gross Description Specimen A: Received is one formalin filled container labeled with the patients name and designated right thigh. The specimen consists of a shave removal measuring 6x4x3 mm. Jar 0. Specimen B: Received is one formalin filled container labeled with the patients name and designated left thigh. The specimen consists of a shave removal measuring 3x5x8 mm. Jar 0. 4 5:25 PM CDT DERMATOPATHOLOGY LABORATORY Microscopic Description Specimen A. SKIN, right thigh: There is a gently folded epidermis surrounding a connective tissue core in which fat and collagen are intermingled. Specimen B. SKIN, left thigh: There is a gently folded epidermis surrounding a connective tissue core in which fat and collagen are intermingled. 4 5:25 PM CDT DERMATOPATHOLOGY LABORATORY Disclaimer An external and internal positive and negative controls are appropriate for the histochemical, immunohistochemical and immunofluorescence stain(s) in this case (if any), except where stated explicitly. The performance characteristics of the stain(s) cited in this report were developed and its performance characteristic determined by the Dermatopathology Laboratory at [facility], directed by Dr. Jaciel Almeida. These tests need not be, and therefore are not, approved by the [place] Food and Drug Administration. The tests are used for clinical purposes. Billing Codes Specimen Charges Stain Charges 84860 72676 1 1 4 5:25 PM CDT DERMATOPATHOLOGY LABORATORY Embedded Images 4 5:25 PM CDT DERMATOPATHOLOGY LABORATORY Pathology/Cytology TISSUE SPECIMEN FROM SKIN / Unknown 02/10/2024 02/11/2024 9:21 AM CDT Miscellaneous samples (specimen) TISSUE SPECIMEN FROM SKIN / Unknown 02/10/2024 02/11/2024 9:21 AM CDT Sherwin Haley MD LAB - PATHOLOGY/CYTOLOGY ORDERAB LES Final Result DERMATOPATHOLOGY LABORATORY [facility] - Department of Dermatology [facility] Medicine [address] [place] [address], [address] [phone] documented in this encounter Visit Diagnoses Not on filedocumented in this encounter
--- OUTSIDE RECORDS SUMMARY | 2025-07-23 15:06 | XMS_ITS | Patient Health Record ---
Author Organization [facility] Address [address] [place], [place] [id number] Care Team Providers Care Interior Painter Name Role Phone Azam Dove Unavailable Unavailable Reason For Referral No Information Social History Social History Additional Details Category Social Info Options Details Migrated Social History Migrated Social History Alcohol intake : , History of tobacco use : , Smoking Status : Never smoked Plan Of Treatment No Information Insurance Providers Payer Name Payer Address Payer Phone Subscriber Number Group Number Insured Name Patient Relationship to Insured Coverage Start Date [facility]age End Date [facility] [address] [place], [place] [id number] PAWEL STONE Self - patient is the insured
--- OUTSIDE RECORDS SUMMARY | 2025-07-23 15:06 | XMS_ITS | Clinical Summary ---
Author Organization [facility] Address [address] [facility] [place] [address] Care Team Providers Care Plan Nurse Name Role Phone Unavailable Primary Care Provider Unavailabl e Source Comments [facility],non-owned Affiliates and Associated Physician Practices is amultiple site organization consisting of ambulatory clinics and hospital sitesin [place], [place], [place] and [place]. This disclosure is being madepursuant to the Care Everywhere program and may not contain all information available regarding this patient. Last updated 18.[facility] Social History Tobacco Use Types Packs/Day Years Used Date Smoking Tobacco: Never Assessed Comments Unknown Sex and Gender Information Value Date Recorded Sex Assigned at Not on file Legal Sex Female 8:43 AM CDT Gender Identity Not on file Sexual Orientation Not on file Plan of Treatment Health Maintenance Due Date Last Done Comments COLOGUARD (AGES 45-75) - COL ON CA SCREENING 1963 COLON MONITORING 1963 COLONOSCOPY - COLON CA SCREENING 1963 CT COLONOGRAPHY - COLON CA SCREENING 1963 Colorectal Cancer Screening 1963 FIT - COLON CA SCREENING 1963 FLEX SIG - COLON CA SCREENING 1963 LIPID TESTING 1963 MAMMOGRAM 1963 HIV SCREENING 1978 HEPATITIS C SCREENING 05/09/1981 DTAP/TDAP/TD VACCINES (1 - Tdap) 1982 PAP SMEAR 1984 PNEUMOCOCCAL VACCINE 50+ (1 of 1 - PCV) 2013 ZOSTER VACCINE (1 of 2) 2013 DEPRESSION SCREENING 09/23/2024 COVID-19 VACCINE (1 - 2023-2 5 season) 2025 INFLUENZA VACCINE (#1) 2025 Respiratory Syncytial Virus (RSV) Vaccine Pt: or over 60 yrs (1 - 1-dose 75+ series) 2038 HEPATITIS B VACCINE Aged Out No longe r eligible based on patient's age to complete this topic HIB VACCINE Aged Out No longer eligi ble based on patient's age to complete this topic HPV VACCINE Aged Out No longer eligi ble based on patient's age to complete this topic MENINGOCOCCAL (Group B) VACC INE SHARED DECISION-MAKING Aged Out No longer eligibl e based on patient's age to complete this topic MENINGOCOCCAL GROUPS A/C/Y/W VACCINE Aged Out No longer eligible b ased on patient's age to complete this topic Insurance [address] [id number] [employer]
== END 2025-07-23 14:59 | disposition home or self-care (01) ==
LOC: ANHFOHIMG 15:01
PROVIDERS: Visit Provider Obstetrics & Gynecology
DX: Z12.31 Encounter for screening mammogram for malignant neoplasm of breast (principal)
CPT/HCPCS: 77063; 77067